=== PATIENT | male | born 1975 | race Caucasian/White ===

== ENCOUNTER 2016-09-18 08:03 | Emergency (ER) | payer SELFPAY ==
--- NOTE | 2016-09-18 09:09 | ER Document Report ---
ED General - General Chief Complaint: Toe Injury Stated Complaint: TOE PAIN Mode of Arrival: Ambulatory Information source: Patient Notes: 32-year-old male presents after kicking his bed by accident with his left foot 2 days ago. Patient notes bruising pain of the fifth digit. Denies any other injuries TRAVEL OUTSIDE OF THE [place] IN LAST 30 DAYS: No - HPI Onset: Other Onset/Duration: Persistent Quality of pain: Achy Severity: Mild Pain Level: 1 Associated symptoms: Other Exacerbated by: Walking Relieved by: Denies Similar symptoms previously: No Recently seen / treated by doctor: No - Related Data Allergies/Adverse Reactions: tramadol HCl [From Ultra] Allergy (Verified 09/18/16 08:24) Past Medical History - Social History Smoking Status: Current Every Day Smoker Cigarette use (# per day): Yes Chew tobacco use (# tins/day): No Smoking Education Provided: No Frequency of alcohol use: None Drug Abuse: [place] Family History: None - adopted Patient has suicidal ideation: No Patient has homicidal ideation: No Pulmonary Medical History: Reports: Hx Asthma, Hx Bronchitis Renal/ Medical History: Denies: Hx Peritoneal Dialysis Past Surgical History: Reports: Hx Genitourinary Surgery - circumscised, Hx Herniorrhaphy, Hx Orthopedic Surgery - rt knee - Immunizations Immunizations up to date: Yes Hx Diphtheria, Pertussis, Tetanus Vaccination: Yes Review of Systems - Review of Systems Notes: REVIEW OF SYSTEMS: CONSTITUTIONAL : Denies fever, chills, or sweats. Denies recent illness. EENT: Denies eye, ear, throat, or mouth pain or symptoms. Denies nasal or sinus congestion or discharge. Denies throat, tongue, or mouth swelling or difficulty swallowing. CARDIOVASCULAR: Denies chest pain. Denies palpitations or racing or irregular heart beat. Denies ankle edema. RESPIRATORY: Denies cough, cold, or chest congestion. Denies shortness of breath, difficulty breathing, or wheezing. GASTROINTESTINAL: Denies abdominal pain or distention. Denies nausea, vomiting , or diarrhea. Denies blood in vomitus, stools, or per rectum. Denies black, tarry stools. Denies constipation. GENITOURINARY: Denies difficulty urinating, painful urination, burning, frequency, blood in urine, or discharge. MUSCULOSKELETAL: Admits to toe pain SKIN: Denies rash, lesions or sores. HEMATOLOGIC : Denies easy bruising or bleeding. LYMPHATIC: Denies swollen, enlarged glands. NEUROLOGICAL: Denies confusion or altered mental status. Denies passing out or loss of consciousness. Denies dizziness or lightheadedness. Denies headache. Denies weakness or paralysis or loss of use of either side. Denies problems with gait or speech. Denies sensory loss, numbness, or tingling. Denies seizures. PSYCHIATRIC: Denies anxiety or stress. Denies depression, suicidal ideation, or homicidal ideation. ALL OTHER SYSTEMS REVIEWED AND NEGATIVE. Dictation was performed using [employer] recognition software PHYSICAL EXAMINATION: GENERAL: Well-appearing, well-nourished and in no acute distress. HEAD: Atraumatic, normocephalic. EYES: Pupils equal round extraocular movements intact, conjunctiva are normal. ENT: Nares patent NECK: Normal range of motion LUNGS: No respiratory distress Musculoskeletal: Normal range of motion NEUROLOGICAL: Normal speech, normal gait. PSYCH: Normal mood, normal affect. SKIN: Mild ecchymosis noted of the fifth digit with edema of the left foot Physical Exam - Vital signs Vitals: Temp Pulse Resp BP Pulse Ox 97.8 F 79 16 148/86 H 99 09/18/16 08:08 09/18/16 08:08 09/18/16 08:08 09/18/16 08:08 09/18/16 08:08 Course - Re-evaluation Re-evalutation: 09/18/16 09:06 X-ray noted no acute abnormality, patient will be baylee splint is otherwise stable for discharge Patient encouraged to follow-up with primary care physician for reevaluation or to return immediately if there are any other concerns After performing a Medical Screening Examination, I estimate there is LOW risk for INTRACRANIAL HEMORRHAGE, UNSTABLE SPINE FRACTURE, CENTRAL CORD SYNDROME, CAUDA EQUINA, THORACIC AORTIC DISSECTION, PNEUMOTHORAX, PERFORATED BOWEL, RUPTURED ABDOMINAL AORTIC ANEURYSM, ACUTE TENDON RUPTURE, COMPARTMENT SYNDROME, or OPEN FRACTURE, thus I consider the discharge disposition reasonable. Also, there is no evidence or peritonitis, sepsis, or toxicity. The patient and I have discussed the diagnosis and risks, and we agree with discharging home to follow-up with their primary doctor with the understanding that symptoms and presentations can change. We also discussed returning to the Emergency Department immediately if new or worsening symptoms occur. We have discussed the symptoms which are most concerning (e.g., bloody stool, fever, changing or worsening pain, vomiting) that necessitate immediate return. - Vital Signs Vital signs: Temp Pulse Resp BP Pulse Ox 97.8 F 79 16 148/86 H 99 09/18/16 08:08 09/18/16 08:08 09/18/16 08:08 09/18/16 08:08 09/18/16 08:08 Procedures - Immobilization Left Toe 5th digit Time completed: 09:07 Pre-Proc Neuro Vasc Exam: Normal Immobilizer type: Other - Baylee tape Performed by: PCT Post-Proc Neuro Vasc Exam: Normal Alignment checked and good: Yes Discharge - Discharge Clinical Impression: Crushing injury of fifth toe, left Qualifiers: Encounter type: initial encounter Qualified Code(s): S97.122A - Crushing injury of left lesser toe(s), initial encounter Foot pain Qualifiers: Laterality: left Qualified Code(s): M79.672 - Pain in left foot Condition: Stable Disposition: HOME, SELF-CARE Instructions: Contusion ([facility]) Additional Instructions: Follow up with your physician tomorrow for further care or return to the ED IMMEDIATELY if symptoms worsen or new concerns occur Prescriptions: Naproxen 500 mg PO BID #20 tablet
[2016-09-18 09:31] VITALS: BP 141/78
== END 2016-09-18 09:28 | disposition home or self-care (01) ==
LOC: ER 08:03
DX: S97.122A Crushing injury of left lesser toe(s), initial encounter (principal); M79.672 Pain in left foot; F17.210 Nicotine dependence, cigarettes, uncomplicated; X58.XXXA Exposure to other specified factors, initial encounter
CPT/HCPCS: 99283

== ENCOUNTER 2017-02-24 04:03 | Emergency (ER) | payer SELFPAY ==
--- NOTE | 2017-02-24 04:46 | RADIOLOGY REPORT (SQ) ---
EXAM DESCRIPTION: ANKLE LEFT COMPLETE COMPLETED DATE/TIME: 02/24/2017 4:27 am REASON FOR STUDY: injury COMPARISON: 05/19/2013. 01/06/2014. NUMBER OF VIEWS: Three views. TECHNIQUE: AP, lateral, and oblique radiographic images acquired of the left ankle. LIMITATIONS: None. FINDINGS: MINERALIZATION: Normal. BONES: No acute fracture or dislocation. No worrisome bone lesions. Small nonspecific cortical flat tening and osteophyte at the medial aspect of the left talus consistent with prior radiographs, 2012. Wuvy-wu-tronwufc osteoarthritis at the dorsum of the midfoot at the tarsometatarsal joints. JOINTS: No effusions. SOFT TISSUES: Mild lateral malleolar soft tissue swelling. OTHER: No other significant finding. IMPRESSION: Mild lateral malleolar soft tissue swelling. Fbrq-oz-obxioofk osteoarthritis. TECHNICAL DOCUMENTATION: JOB ID: [id number] [employer]- All Rights Reserved
--- NOTE | 2017-02-24 05:10 | ER Document Report ---
HPI - HPI Pain Level: 4 Notes: Patient is a 41-year-old male who presents the ED complaining of left lateral ankle/foot pain status post twist injury while at home about 6 hours ago. Patient states that he tripped over a [place] bone and states that he heard a pop in his ankle. Patient states that he has had pain since then and has had difficulty ambulating because of the pain. Patient states that he did notice some swelling to the lateral ankle. The pain does not radiate and is described as a throb. Patient states that he still has sensation into his toes and can still move his foot and toes around although it does cause discomfort. Denies any fever, chest pain, palpitations, shortness of breath, wheeze, abdominal pain , nausea/vomiting, calf pain, bruising. - ROS Notes: REVIEW OF SYSTEMS: CONSTITUTIONAL : Denies fever, chills, or sweats. Denies recent illness. EENT: Denies eye, ear, throat, or mouth pain or symptoms. Denies nasal or sinus congestion or discharge. Denies throat, tongue, or mouth swelling or difficulty swallowing. CARDIOVASCULAR: Denies chest pain. Denies palpitations or racing or irregular heart beat. Denies ankle edema. RESPIRATORY: Denies cough, cold, or chest congestion. Denies shortness of breath, difficulty breathing, or wheezing. GASTROINTESTINAL: Denies abdominal pain or distention. Denies nausea, vomiting , or diarrhea. Denies blood in vomitus, stools, or per rectum. Denies black, tarry stools. Denies constipation. GENITOURINARY: Denies difficulty urinating, painful urination, burning, frequency, blood in urine, or discharge. MUSCULOSKELETAL: see hpi SKIN: Denies rash, lesions or sores. NEUROLOGICAL: Denies confusion or altered mental status. Denies passing out or loss of consciousness. Denies dizziness or lightheadedness. Denies headache. Denies weakness or paralysis or loss of use of either side. Denies problems with gait or speech. Denies sensory loss, numbness, or tingling. ALL OTHER SYSTEMS REVIEWED AND NEGATIVE. Dictation was performed using [employer] voice recognition software - REPRODUCTIVE Reproductive: DENIES: : - DERM Skin Color: Normal, [place] Past Medical History - Social History Smoking Status: Current Every Day Smoker Family History: None - adopted Pulmonary Medical History: Reports: Hx Asthma, Hx Bronchitis Renal/ Medical History: Denies: Hx Peritoneal Dialysis Past Surgical History: Reports: Hx Genitourinary Surgery - circumscised, Hx Herniorrhaphy, Hx Orthopedic Surgery - rt knee - Immunizations Immunizations up to date: Yes Hx Diphtheria, Pertussis, Tetanus Vaccination: Yes Vertical Provider Document - CONSTITUTIONAL Agree With Documented VS: Yes Notes: PHYSICAL EXAMINATION: GENERAL: Well-appearing, well-nourished and in no acute distress. LUNGS: Breath sounds clear to auscultation bilaterally and equal. No wheezes rales or rhonchi. HEART: Regular rate and rhythm without murmurs, rubs, gallops. Musculoskeletal: Lt foot/ankle: LROM to passive/active. Strength 5+/5. + mild swelling to the left lateral ankle. + tenderness to palp of the 5th metatarsal and lateral malleolus. No obvious ecchymosis noted. Extremities: No cyanosis, clubbing, or edema b/l. Peripheral pulses 2+. Capillary refill less than 3 seconds. NEUROLOGICAL: Normal sensory, motor exams PSYCH: Normal mood, normal affect. SKIN: Warm, Dry, normal turgor, no rashes or lesions noted. - INFECTION CONTROL TRAVEL OUTSIDE OF THE [place] IN LAST 30 DAYS: No - RESPIRATORY O2 Sat by Pulse Oximetry: 99 Course - Re-evaluation Re-evalutation: 02/24/17 05:50 Patient is an afebrile, well-hydrated, 41-year-old male who presents the ED with suspect strain/sprain based on H&P. Vitals are stable. PE otherwise unremarkable. X-ray unremarkable for any acute fracture or dislocation. Toradol 15 mg given IM as patient was requesting pain medication. recommend conservative measures for symptoms. Recheck with PCM in 2-3 days. Consider consult with orthopedics/physical therapy/podiatry. Return to the ED with any worsening/concerning symptoms otherwise as reviewed discharge. Patient is in agreement. - Vital Signs Vital signs: Temp Pulse Resp BP Pulse Ox 98.4 F 88 18 143/92 H 99 02/24/17 04:12 02/24/17 04:12 02/24/17 04:12 02/24/17 04:12 02/24/17 04:12 Discharge - Discharge Clinical Impression: Left ankle pain Qualifiers: Chronicity: acute Qualified Code(s): M25.572 - Pain in left ankle and joints of left foot Condition: Stable Disposition: HOME, SELF-CARE Instructions: Ankle Exercise Program ([facility]), Ankle Stirrup Splint ([facility]), Ice & Elevation ([facility]), Sprained Ankle ([facility]), Use of Crutches ([facility]) Additional Instructions: Rest, Ice, Compression, Elevation Use splint as directed Tylenol/ibuprofen as needed Light stretches daily Strength exercises as able Moist heat and massage may help F/u with your PCP in 2-3 days for a recheck Consider consult(s) with Orthopedics/physical therapy for ongoing/worsening symptoms Return to the ED with any worsening pain, swelling, numbness/tingling, muscle weakness, development of fever, or any other worsening/concerning symptoms as needed. Forms: Elevated Blood Pressure, Smoking Cessation Education Referrals: [facility] [Provider Group] - Follow up as needed
[2017-02-24] MEDS ORDERED: KETOROLAC TROMETHAMINE INJ/PF 30 MG/1 ML SDV IM ONE (05:18)
[2017-02-24 06:07] VITALS: BP 145/89
== END 2017-02-24 05:55 | disposition home or self-care (01) ==
LOC: ER 04:03
DX: M25.572 Pain in left ankle and joints of left foot (principal); M25.472 Effusion, left ankle; X50.1XXA Overexertion from prolonged static or awkward postures, initial encounter; Y92.009 Unspecified place in unspecified non-institutional (private) residence as the place of occurrence of the external cause; F17.200 Nicotine dependence, unspecified, uncomplicated; J45.909 Unspecified asthma, uncomplicated
CPT/HCPCS: 99283; 96372; 73610; L1902; J1885

== ENCOUNTER 2019-10-13 02:24 | Emergency (ER) | payer SELFPAY ==
[2019-10-13] MEDS ORDERED: PENICILLIN V POTASSIUM 500 MG TABLET PO ONE (03:28)
[2019-10-13] MEDS ORDERED: HYDROCODONE/ACETAMINOPHEN 5-325 MG (6 TAB/ER DISP) PO PRN (03:28)
[2019-10-13] MEDS ORDERED: OXYCODONE-ACETAMINOPHEN 5-325 MG TABLET PO ONE (03:31)
--- NOTE | 2019-10-13 03:31 | ER Document Report ---
HPI - HPI Time Seen by Provider: 10/13/19 03:01 Pain Level: 4 Context: Patient is a 43-year-old male that comes emergency department for chief complaint of dental pain. He states it has been worsening for 4 days. Pain is on both lower jaws. He denies swelling of the face, fever, sore throat, neck pain. He acknowledges that he has terrible teeth and needs multiple extractions. He states he saving up money for sedation dentistry. He denies any daily medications or medical problems. Denies any complaints otherwise. - REPRODUCTIVE Reproductive: DENIES: : Past Medical History - General Information source: Patient - Social History Smoking Status: Current Every Day Smoker Frequency of alcohol use: None Drug Abuse: None Lives with: Family Family History: None - adopted Patient has suicidal ideation: No Patient has homicidal ideation: No Pulmonary Medical History: Reports: Hx Asthma, Hx Bronchitis Renal/ Medical History: Denies: Hx Peritoneal Dialysis Past Surgical History: Reports: Hx Genitourinary Surgery - circumscised, Hx Herniorrhaphy, Hx Orthopedic Surgery - rt knee - Immunizations Immunizations up to date: Yes Hx Diphtheria, Pertussis, Tetanus Vaccination: Yes Vertical Provider Document - CONSTITUTIONAL General Appearance: WD/WN, Mild Distress - Patient pacing and appears mildly uncomfortable - INFECTION CONTROL TRAVEL OUTSIDE OF THE [place] IN LAST 30 DAYS: No - HEENT HEENT: Atraumatic, Normocephalic, PERRLA. negative: Conjuctival Injection, Normal ENT Exam - Terrible dentition, widespread dental caries, there is erythema along most of the lower gumline as well. Upper gumline unremarkable. There is no noted induration, fluctuance, or abscess. Oral pharyngeal exam is unremarkable otherwise. No swelling of the face., Pharyngeal Erythema, Tympanic Membrane Red, Tympanic Membrane Bulging - NECK Neck: Normal Inspection. negative: Lymphadenopathy-Left, Lymphadenopathy-Right - RESPIRATORY Respiratory: Breath Sounds Normal, No Respiratory Distress - CARDIOVASCULAR Cardiovascular: Regular Rate, Regular Rhythm. negative: Tachycardia - GI/ABDOMEN Gastrointestinal: Abdomen Soft, Abdomen Non-Tender. negative: Abdomen Tender - BACK Back: Normal Inspection - MUSCULOSKELETAL/EXTREMETIES Musculoskeletal/Extremeties: MAEW, FROM, Non-Tender - NEURO Level of Consciousness: Awake, Alert, Appropriate Motor/Sensory: No Motor Deficit, No Sensory Deficit - DERM Integumentary: Warm, Dry, No Rash Course - Re-evaluation Re-evalutation: Patient does appear to have a dental infection but there is no swelling of the face, no abscess, no swelling of the neck, no concerning findings otherwise. Starting on antibiotics, referred to dentist, discussed expectations and return precautions. Patient states understanding and agreement. - Vital Signs Vital signs: Temp Pulse Resp BP Pulse Ox 97.6 F 70 16 167/106 H 100 10/13/19 02:28 10/13/19 02:28 10/13/19 02:10/13/19 02:10/13/19 02:28 Discharge - Discharge Clinical Impression: Pain, dental, Dental infection Condition: Stable Disposition: HOME, SELF-CARE Instructions: Oral Narcotic Medication ([facility]) Additional Instructions: Your evaluation is consistent with a dental infection. Take antibiotics as prescribed to completion. Follow close with a dentist for this will continue to happen. Return if you worsen including swelling of the face, fever, or any other concerning or worsening symptoms. [facility] [address], [address] Prescriptions: Penicillin V Potassium [Penicillin Vk 500 mg Tablet] 500 mg PO BID #20 tablet Forms: Return to Work
[2019-10-13 03:35] VITALS: BP 157/98
== END 2019-10-13 03:45 | disposition home or self-care (01) ==
LOC: ER 02:24
DX: K04.7 Periapical abscess without sinus (principal); K08.9 Disorder of teeth and supporting structures, unspecified; F17.200 Nicotine dependence, unspecified, uncomplicated
CPT/HCPCS: 99282

== ENCOUNTER 2020-03-25 23:00 | Emergency (ER) | payer SELFPAY ==
--- NOTE | 2020-03-26 01:23 | RADIOLOGY REPORT (SQ) ---
CLINICAL INDICATION: bone pain. . TECHNIQUE: 3 view(s) were obtained of the right shoulder. COMPARISON: None. FINDINGS: No acute displaced fracture is identified of the shoulder. Alignment appears anatomic. Joint spaces are within normal limits for age. Surrounding soft tissues are unremarkable. IMPRESSION: No evidence of acute bony injury to the shoulder.
[2020-03-26 04:10] VITALS: BP 159/95
[2020-03-26] MEDS ORDERED: OXYCODONE-ACETAMINOPHEN 5-325 MG TABLET PO ONE (04:27)
[2020-03-26] MEDS ORDERED: PROMETHAZINE HCL 25 MG TABLET PO ONE (04:27)
--- NOTE | 2020-03-26 04:30 | ER Document Report ---
HPI - HPI Time Seen by Provider: 03/26/20 03:21 Pain Level: 4 Context: Patient is a 44-year-old male that comes emergency department for chief complaint of right shoulder injury. Patient states he was lifting a couch this evening and felt a pop in his right shoulder. Patient states he is taking ibuprofen without significant improvement. He denies any other injuries or any other complaints. He denies numbness in the arm. He denies any daily medications or diagnosed medical history. - REPRODUCTIVE Reproductive: DENIES: : - MUSCULOSKELETAL Musculoskeletal: REPORTS: Extremity pain - rt shoulder Past Medical History - General Information source: Patient - Social History Smoking Status: Current Every Day Smoker Drug Abuse: None Lives with: Family Family History: None - adopted Pulmonary Medical History: Reports: Hx Asthma, Hx Bronchitis Renal/ Medical History: Denies: Hx Peritoneal Dialysis Past Surgical History: Reports: Hx Genitourinary Surgery - circumscised, Hx Herniorrhaphy, Hx Orthopedic Surgery - rt knee - Immunizations Immunizations up to date: Yes Hx Diphtheria, Pertussis, Tetanus Vaccination: Yes Vertical Provider Document - CONSTITUTIONAL General Appearance: Moderate Distress - Patient peers to be in pain, holding his left arm close to his body - INFECTION CONTROL TRAVEL OUTSIDE OF THE [place] IN LAST 30 DAYS: No - HEENT HEENT: Atraumatic, Normal ENT Exam, Normocephalic - NECK Neck: Normal Inspection - RESPIRATORY Respiratory: Breath Sounds Normal, No Respiratory Distress - CARDIOVASCULAR Cardiovascular: Regular Rate, Regular Rhythm - GI/ABDOMEN Gastrointestinal: Abdomen Soft, Abdomen Non-Tender - BACK Back: Normal Inspection - Non-tender back generally on palpation. No midline tenderness, no saddle anesthesia, no signs of trauma. Normal upper and lower extremity range of motion, normal strength, normal distal neurovascular exam. - MUSCULOSKELETAL/EXTREMETIES Musculoskeletal/Extremeties: MARK CRAIG. negative: Non-Tender - Patient is tender over the supraspinatus and the posterior aspect of the right shoulder, tender over the deltoid, has very limited range of motion of the shoulder without significant pain and noted spasm. Normal elbow exam, wrist exam, normal distal neurovascular exam and strength. Otherwise unremarkable. Course - Re-evaluation Re-evalutation: Patient with very tender right rotator cuff on evaluation, very limited range of motion on evaluation, a lot of muscle spasm is noted. Distal neurovascular exam unremarkable, no traumatic injuries, x-rays unremarkable. Patient placed in sling which did help his symptoms, because of his significant muscle spasm in the shoulder patient was placed on diazepam, referred to orthopedics, discussed rotator cuff injuries, expectations, return precautions. Patient states understanding and agreement. - Vital Signs Vital signs: Temp Pulse Resp BP Pulse Ox 98.3 F 55 L 16 159/95 H 97 03/25/20 23:04 03/26/20 04:08 03/26/20 04:08 03/26/20 04:08 03/26/20 04:08 Procedures - Immobilization Right shoulder Pre-Proc Neuro Vasc Exam: Normal Immobilizer type: Sling Performed by: RN Post-Proc Neuro Vasc Exam: Normal Alignment checked and good: Yes Discharge - Discharge Clinical Impression: Muscle spasm Right shoulder pain Qualifiers: Chronicity: acute Qualified Code(s): M25.511 - Pain in right shoulder Right shoulder injury Qualifiers: Encounter type: initial encounter Qualified Code(s): S49.91XA - Unspecified injury of right shoulder and upper arm, initial encounter Condition: Stable Disposition: HOME, SELF-CARE Additional Instructions: Your evaluation is most consistent with a torn rotator cuff and muscle spasm. The x-ray does not show a fracture. Wear the sling, remember to take the arm out of the sling frequently to perform range of motion as we discussed. Apply ice to the shoulder 3-4 times a day, take anti-inflammatory muscle x-rays prescribed with the precautions. Follow-up with orthopedics referral as directed. Return if you worsen including severe worsening swelling or pain, numbness, or any other concerning symptoms. Prescriptions: Naproxen 500 mg PO BID PRN #20 tablet PRN Reason: Diazepam [Valium 5 mg Tablet] 1 - 2 tab PO TID PRN #15 tablet PRN Reason: Forms: Return to Work Referrals: PATRICIO STAPLES MD [ACTIVE STAFF] - Follow up as needed
== END 2020-03-26 04:45 | disposition home or self-care (01) ==
LOC: ER 23:00
DX: S49.91XA Unspecified injury of right shoulder and upper arm, initial encounter (principal); M62.838 Other muscle spasm; X50.0XXA Overexertion from strenuous movement or load, initial encounter; F17.200 Nicotine dependence, unspecified, uncomplicated
CPT/HCPCS: 99283

== ENCOUNTER 2020-03-30 23:58 | Emergency (ER) | payer SELFPAY ==
[2020-03-31] MEDS ORDERED: ONDANSETRON 4 MG TAB.RAPDIS PO ONE (00:58)
[2020-03-31] MEDS ORDERED: OXYCODONE-ACETAMINOPHEN 5-325 MG TABLET PO ONE (00:58)
--- NOTE | 2020-03-31 01:03 | ER Document Report ---
HPI - HPI Time Seen by Provider: 03/31/20 00:57 Notes: CHIEF COMPLAINT: Right shoulder pain HPI: 44-year-old [id number] male presenting again for right shoulder pain. Patient injured the shoulder 5 days ago lifting a couch, felt a pop in the shoulder, states he came to the emergency department had an x-ray that was negative for fracture was placed in a sling and is to follow-up with orthopedics whom he has not yet seen. Patient states he was discharged on a muscle relaxer and anti-inflammatory and is having severe pain in the shoulder with movement. ROS: See HPI - all other systems were reviewed and are otherwise negative Constitutional: no fever Integumentary: no rash Allergy: no hives Musculoskeletal: + extremity pain or swelling Neurological: no numbness/tingling, no weakness MEDICATIONS: I agree with the patient medications as charted by the RN. ALLERGIES: I agree with the allergies as charted by the RN. PAST MEDICAL HISTORY/PAST SURGICAL HISTORY: Reviewed and agree as charted by RN. SOCIAL HISTORY: Reviewed and agree as charted by RN. FAMILY HISTORY: No significant familial comorbid conditions directly related to patient complaint EXAM: Reviewed vital signs as charted by RN. CONSTITUTIONAL: Alert and oriented and responds appropriately to questions. Well-appearing; well-nourished HEAD: Normocephalic; atraumatic EYES: Conjunctivae clear, sclerae non-icteric ENT: normal nose; no rhinorrhea; moist mucous membranes NECK: Supple without meningismus; non-tender; no cervical lymphadenopathy, no masses CARD: symmetric distal pulses RESP: Normal chest excursion without splinting or tachypnea ABD/GI: non-distended. BACK: The back appears normal and is non-tender to palpation EXT: Limited range of motion in the right arm at the shoulder secondary to complaints of pain patient is resistant to having the arm moved. Brachial radial and ulnar pulses are present in the right upper extremity. Sensation intact in the fingertips with capillary refill less than 3 seconds. SKIN: Normal color for age and race; warm; dry; good turgor; no acute lesions noted NEURO: Motor and sensory function intact PSYCH: The patient's mood and manner are appropriate. Grooming and personal hygiene are appropriate. MDM: 44-year-old male probably with a rotator cuff tear. Will give him sling precautions. He was prescribed Valium and naproxen previously still having severe pain, will prescribe a short course of Percocet for pain follow-up orthopedics - REPRODUCTIVE Reproductive: DENIES: : Past Medical History - Social History Smoking Status: Unknown if Ever Smoked Family History: None - adopted Pulmonary Medical History: Reports: Hx Asthma, Hx Bronchitis Renal/ Medical History: Denies: Hx Peritoneal Dialysis Past Surgical History: Reports: Hx Genitourinary Surgery - circumscised, Hx Herniorrhaphy, Hx Orthopedic Surgery - rt knee - Immunizations Immunizations up to date: Yes Hx Diphtheria, Pertussis, Tetanus Vaccination: Yes Vertical Provider Document - INFECTION CONTROL TRAVEL OUTSIDE OF THE [place] IN LAST 30 DAYS: No Course - Vital Signs Vital signs: Temp Pulse Resp BP Pulse Ox 98.8 F 79 20 166/97 H 100 03/31/20 00:03 03/31/20 00:03 03/31/20 00:03 03/31/20 00:03 03/31/20 00:03 Discharge - Discharge Clinical Impression: Rotator cuff tear Qualifiers: Rotator cuff tear extent: unspecified tear extent Rotator cuff tear trauma status: traumatic Encounter type: subsequent encounter Laterality: right Qualified Code(s): S46.011D - Strain of muscle(s) and tendon(s) of the rotator cuff of right shoulder, subsequent encounter Condition: Stable Disposition: HOME, SELF-CARE Instructions: Rotator Cuff Injury ([facility]) Additional Instructions: 1. ice the shoulder twice daily for 10 minutes each time 2. use the sling for comfort during the day only for 2-3 days. Do not sleep in the sling 3. take the arm out of the sling 3-4 times daily and perform gentle range of motion exercises to maintain flexibility in the shoulder 4. medications for pain as directed. No driving on narcotics 5. It is imperative that you follow-up with the orthopedic clinic as soon as possible for further evaluation of the shoulder, it is likely you will need outpatient imaging such as MRI to further delineate the injury to the shoulder Prescriptions: Oxycodone HCl/Acetaminophen [Percocet 5-325 mg Tablet] 1 tab PO Q4H PRN #15 tab PRN Reason: Ondansetron [Zofran Odt 4 mg Tablet] 1 - 2 tab PO Q4H PRN #15 tab.rapdis PRN Reason: For Nausea/Vomiting
[2020-03-31 01:10] VITALS: BP 161/97
== END 2020-03-31 01:10 | disposition home or self-care (01) ==
LOC: ER 23:58
DX: S46.011D Strain of muscle(s) and tendon(s) of the rotator cuff of right shoulder, subsequent encounter (principal); M25.511 Pain in right shoulder; M79.89 Other specified soft tissue disorders; X50.0XXD Overexertion from strenuous movement or load, subsequent encounter; J45.909 Unspecified asthma, uncomplicated
CPT/HCPCS: 99284; S0119